=== PATIENT | male | born 1975 | race Caucasian/White ===

== ENCOUNTER 2021-05-29 10:06 | Day surgery (SDC) | payer SELFPAY ==
[~2021-05-29 10:06] MED LIST: CELEXA20 M1 PO; CELEXA40 MG PO; CLINDAMYCIN150 MG PO; CLINDAMYCIN300 M1 PO; CLONIDINE0.1 MG PO; FLEXERIL PO; HYDROCHLOROT25 MG PO; LISINOPRIL20 MG PO; MUPIROCIN2 % EX; NAPROSYN500 MG PO; PAROXETINE20 MG OR; PAXIL10 MG OR; SILVADENE1 % EX; SUBOXONE SL; VIAGRA100 MG OR; XANAX0.5 MG PO; ZITHROMAX500 MG PO
[2021-05-29 12:47] VITALS: BP 129/92
[2021-06-04] MEDS ORDERED: OMEPRAZOLE20 MG PO (12:06)
== END 2021-05-29 13:00 | disposition home or self-care (01) | DRG 392 ==
LOC: ENDO 10:06 → ORM 10:10 → ENDO 13:00
PROVIDERS: ATTEND Surgery
PROC: 0DBL8ZX Excision of Transverse Colon, Via Natural or Artificial Opening Endoscopic, Diagnostic (ICD-10-PCS; principal; 2021-05-29)
PROC: 0DBB8ZX Excision of Ileum, Via Natural or Artificial Opening Endoscopic, Diagnostic (ICD-10-PCS; 2021-05-29)
PROC: 0DB98ZX Excision of Duodenum, Via Natural or Artificial Opening Endoscopic, Diagnostic (ICD-10-PCS; 2021-05-29)
PROC: 0DB48ZX Excision of Esophagogastric Junction, Via Natural or Artificial Opening Endoscopic, Diagnostic (ICD-10-PCS; 2021-05-29)
DX: K57.30 Diverticulosis of large intestine without perforation or abscess without bleeding (principal); Z94.81 Bone marrow transplant status; D12.3 Benign neoplasm of transverse colon; K64.8 Other hemorrhoids; K20.90 Esophagitis, unspecified without bleeding; K29.80 Duodenitis without bleeding; K44.9 Diaphragmatic hernia without obstruction or gangrene; F17.210 Nicotine dependence, cigarettes, uncomplicated; Z85.71 Personal history of Hodgkin lymphoma